=== PATIENT | male | born 1990 | race American Indian/Alaskan Native ===

== ENCOUNTER 2017-01-11 16:58 | Observation (INO) | payer OTHER ==
--- NOTE | 2017-01-11 17:13 | C.PDOC ---
History Of Present Illness <Laurita Matos - Last Filed: 01/11/17 18:44> <LaquitavalerieAna - Last Filed: 01/12/17 02:57> 26-year-old male, presents to the emergency department, brought in by EMS and [facility], with complaints of being EDP on train. Patient uncooperative en route, unfocused and scattered. Possible questionable intoxication. Pt uncooperative w / exam, and is refusing to directly answer questions. Threatening to hurt staff. All other Hx limited due to clinical condition. LIMITED DUE TO CLIN COND PER EMS AND PD, PT EDP ON TRAIN. PT UNCOOPERATIVE EN ROUTE, UNFOCUSED AND SCATTERED. POSSIBLE INTOX? PT UNCOOP W EXAM, REFUSING TO DIRECTLY ANSWER QUESTIONS. THREATENING TO HURT STAFF ROS UTO EXAM MOD DIST PSYCH AGITATED, BELIGERENT POSSIBLE INTOX VS MANIC? +ACTIVE HOMICIDAL IDEATION. REMAINDER NEG (Carlo,Laurita) History Per: Patient, EMS, Other ([employer]) History/Exam Limitations: other (uncooperative) Current Symptoms Are (Timing): Still Present <Laurita Matos - Last Filed: 01/11/17 18:44> <Ana Hernandez - Last Filed: 01/12/17 02:57> Time Seen by Provider: 01/11/17 17:11 Past Medical History Reviewed: Historical Data, Nursing Documentation, Vital Signs Family History: States: No Known Family Hx <Laurita Matos - Last Filed: 01/11/17 18:44> Review Of Systems Review Of Systems: ROS cannot be obtained secondary to pt's inabilty to answer questions. <Laurita Matos - Last Filed: 01/11/17 18:44> Physical Exam - Physical Exam Appears: Non-toxic, Other (AGITATED, BELIGERENT POSSIBLE INTOX VS MANIC? + ACTIVE HOMICIDAL IDEATION. ) Skin: Warm, Dry, No Rash Head: Atraumatic Eye(s): bilateral: Normal Inspection Oral Mucosa: Moist Lips: Normal Appearing Neck: Normal ROM Respiratory: No Accessory Muscle Use Extremity: Normal ROM Neurological/Psych: Oriented x3 <Laurita Matos - Last Filed: 01/11/17 18:44> ED Course And Treatment - Laboratory Results Result Diagrams: 01/11/17 18:30 <Laurita Matos - Last Filed: 01/11/17 18:44> - Laboratory Results Result Diagrams: 01/11/17 18:30 01/11/17 18:30 ECG: Interpreted By Me, Viewed By Me ECG Rhythm: Sinus Rhythm (74), Nonspecific Changes O2 Sat by Pulse Oximetry: 100 Pulse Ox Interpretation: Normal Reevaluation Time: 02:56 Reassessment Condition: Improved <Ana Hernandez - Last Filed: 01/12/17 02:57> Progress - Data Reviewed Data Reviewed: Lab, Diagnostic imaging, EKG, Old records - Critical Care Citical Care: Excluding Proc Time Critical Care Time: 120 minutes <Laurita Matos - Last Filed: 01/11/17 18:44> ED OBSERVATION Date of observation admission: 01/11/17 Time of observation admission: 17:15 <Laurita Matos - Last Filed: 01/11/17 18:44> Discharge: Yes <Ana Hernandez - Last Filed: 01/12/17 02:57> - Observation admission statement Patient is being placed in observation because:: AMS, AGITATION (Laurita Matos) - Goals of Observation Goals of observation are:: SOBRIETY, MED CLEAR POSSIBLE PSYCH EVAL (Laurita Matos) - Progress Note Progress Note: 01/11/17 17:14 PT UNCOOPERATIVE, INCR VIOLENT TOWARDS STAFF. UNCH W RESTRAINTS. 01/11/17 19:00 S/O DR HERNANDEZ FU LABS, DISPO (Laurita Matos) 01/11/17 23:06 vitals stable, no complaints 01/12/17 02:56 no complaints, pleasant, wants to leave (Ana Hernandez) Disposition <Laurita Matos - Last Filed: 01/11/17 18:44> Counseled Patient/Family Regarding: Studies Performed, Diagnosis, Need For Followup - Disposition Disposition Time: 19:00 <Ana Hernandez - Last Filed: 01/12/17 02:57> - Disposition Disposition: HOME/ ROUTINE Condition: FAIR - Clinical Impression Clinical Impression: Polysubstance abuse - Scribe Statement The provider has reviewed the documentation as recorded by the Scribe <Laurita Matos - Last Filed: 01/11/17 18:44> <Ana Hernandez - Last Filed: 01/12/17 02:57> - Scribe Statement Ignacio Boone All medical record entries made by the Scribe were at my direction and personally dictated by me. I have reviewed the chart and agree that the record accurately reflects my personal performance of the history, physical exam, medical decision making, and the department course for this patient. I have also personally directed, reviewed, and agree with the discharge instructions and disposition. (Laurita Matos)
[2017-01-11 18:34] LABS: BASO # 0.1 K/uL (0.0-0.2); BASO % 0.6 % (0.0-2.0); EOS # 0.1 K/uL (0.0-0.7); EOS % 1.5 % (0.0-4.0); HEMATOCRIT 44.5 % (35.0-51.0); LYMPH # 2.2 K/uL (1.0-4.3); LYMPH % 25.8 % (20.0-40.0); MEAN CELL VOLUME 92.3 fL (80.0-94.0); MEAN CORPUSCULAR HEMOGLOBIN 31.5 pg (27.0-31.0); MEAN CORPUSCULAR HGB CONC 34.1 g/dL (33.0-37.0); MONO # 0.9 K/uL (0.0-0.8); MONO % 10.8 % (0.0-10.0); RED CELL DISTRIBUTION WIDTH 12.5 % (11.5-14.5); WHITE BLOOD COUNT 8.7 K/uL (4.8-10.8)
[2017-01-11 18:44] LABS: CHLORIDE 104 mmol/L (98-107); POTASSIUM 3.5 mmol/L (3.6-5.2); SODIUM 139 mmol/L (132-148)
[2017-01-11 18:46] LABS: GFR AFRICAN-AMERICAN > 60
[2017-01-11 18:47] LABS: ALB/GLOB RATIO 1.5 (1.0-2.1); ALKALINE PHOSPHATASE 75 U/L (38-126); ALT/SGPT 23 U/L (21-72); AST/SGOT 31 U/L (17-59); BILIRUBIN,TOTAL 1.1 mg/dL (0.2-1.3); BLOOD UREA NITROGEN 12 mg/dL (9-20); CALCIUM 8.5 mg/dl (8.6-10.4); CARBON DIOXIDE 26 mmol/L (22-30); GLUCOSE,RANDOM 75 mg/dL (75-110); TOTAL PROTEIN 6.6 g/dL (6.3-8.3)
--- NOTE | 2017-01-11 19:55 | CT ---
EXAM: CT Head Without Intravenous Contrast CLINICAL HISTORY: 26 years old, male; Signs and symptoms; Altered mental status/memory loss; Confusion or disorientation; Patient HX: Combative; Additional info: AMS TECHNIQUE: Axial computed tomography images of the head/brain without intravenous contrast. This CT exam was performed using one or more of the following dose reduction techniques: automated exposure control, adjustment of the mA and/or kV according to patient size, and/or use of iterative reconstruction technique. EXAM DATE/TIME: 01/11/2017 5:15 PM COMPARISON: There are no prior studies for comparison. FINDINGS: Brain: Ventricles are normal in size and configuration. There is no midline shift. There are no intra-axial or extra-axial mass lesions or areas of hemorrhage. There are no abnormal fluid collections. Griffith-white differentiation is maintained. Ventricles: See above. Bones: Cranial vault is intact. Soft tissues: unremarkable Sinuses: There is no acute sinusitis. There is a retention cyst/polyp in the sphenoid sinus Ears and mastoids: Middle ears and mastoids are unremarkable. There is debris in the left external auditory canal. Orbits: Orbital contents are unremarkable. IMPRESSION: No acute intracranial abnormality
[2017-01-11 19:59] LABS: URINE BILIRUBIN NEGATIVE (NEGATIVE); URINE BLOOD NEGATIVE (NEGATIVE); URINE COLOR Yellow (YELLOW); URINE GLUCOSE (UA) NORMAL (Normal); URINE KETONE TRACE mg/dL (NEGATIVE); URINE LEUKOCYTE ESTERASE NEG Leu/uL (Negative); URINE PROTEIN NEGATIVE (NEGATIVE); WBC URINE < 1 /hpf (0-5)
[2017-01-11 20:06] VITALS: TEMP 97.6
[2017-01-12 01:09] VITALS: BP 108/64; PULSE 72; RESP 18
[2017-01-12 02:57] VITALS: O2SAT 100
--- NOTE | 2017-01-12 08:04 | RAD ---
PROCEDURE: CHEST RADIOGRAPH, 1 VIEW HISTORY: Altered mental status COMPARISON: None available. FINDINGS: LUNGS: Clear. PLEURA: No pneumothorax or pleural fluid seen. CARDIOVASCULAR: Normal. OSSEOUS STRUCTURES: No significant abnormalities. VISUALIZED UPPER ABDOMEN: Normal. OTHER FINDINGS: None. IMPRESSION: No active disease.
--- NOTE | 2017-01-13 01:55 | CARD ---
APPROVED REPORT EKG Measurement Heart [id number] <Conclusion> Normal sinus rhythm with sinus arrhythmia Normal ECG
== END 2017-01-12 02:57 | disposition home or self-care (01) ==
LOC: C.ER 16:58 → C.9OBSV 17:14
PROVIDERS: ADMIT Emergency Medicine; ATTEND Emergency Medicine
DX: F16.10 Hallucinogen abuse, uncomplicated (principal); F12.10 Cannabis abuse, uncomplicated
CPT/HCPCS: 36415; 70450; 71010; 80053; 80324; 80345; 80346; 80349; 80353; 80358; 80361; 81001; 83992; 85025; 96372; G0378; J2060; J3486

== ENCOUNTER 2017-03-21 14:24 | Emergency (ER) | payer OTHER ==
[2017-03-21 14:46] VITALS: BMI 24.3
[2017-03-21 14:58] VITALS: BP 113/70
[2017-03-21 15:28] VITALS: PULSE 78; RESP 16; TEMP 98.2; O2SAT 99
--- NOTE | 2017-03-21 17:36 | C.PDOC ---
History Of Present Illness 26 yr old male brought in via PD and EMS, according to the triage note, patient is brought in to ER for acting "bizarre". In ED, patient denies SI, HI, visual or auditory hallucinations, nausea or vomiting. Time Seen by Provider: 03/21/17 15:10 Chief Complaint (Nursing): Psychiatric Evaluation History Per: Patient, EMS History/Exam Limitations: no limitations Onset/Duration Of Symptoms: Unknown Current Symptoms Are (Timing): Gone Suicide/Self Injury Attempted (Context): None Severity: None Past Medical History Reviewed: Historical Data, Nursing Documentation, Vital Signs Vital Signs: Last Vital Signs Temp 98.2 F 03/21/17 15:27 Pulse 78 03/21/17 15:27 Resp 16 03/21/17 15:27 BP 113/70 03/21/17 15:27 Pulse Ox 99 03/21/17 17:37 Family History: States: No Known Family Hx - Social History Hx Alcohol Use: Yes Hx Substance Use: Yes Review Of Systems Except As Marked, All Systems Reviewed And Found Negative. Gastrointestinal: Negative for: Nausea, Vomiting Psych: Negative for: Suicidal ideation Physical Exam - Physical Exam Appears: Non-toxic, No Acute Distress Skin: Warm, Dry, No Rash Head: Atraumatic, Normacephalic Oral Mucosa: Moist Chest: Symmetrical, No Tenderness Cardiovascular: Rhythm Regular, No Murmur Respiratory: Normal Breath Sounds, No Rales, No Rhonchi, No Wheezing Extremity: Normal ROM, No Swelling Neurological/Psych: Oriented x3, Normal Speech, Normal Motor ED Course And Treatment O2 Sat by Pulse Oximetry: 99 (RA ) Pulse Ox Interpretation: Normal Progress Note: Patient was seen and evaluated by the Crisis team and was cleared for discharge. Disposition - Disposition Referrals: [facility] Dirk Chacko, [Non-Staff] - Disposition: HOME/ ROUTINE Disposition Time: 15:15 Condition: GOOD Additional Instructions: Thank you for letting us take care of you today. Your provider was Dr. Laura. You were treated for impacted cerumen. The emergency medical care you received today was directed at your acute symptoms. If you were prescribed any medication, please fill it and take as directed. It may take several days for your symptoms to resolve. Return to the Emergency Department if your symptoms worsen, do not improve, or if you have any other problems. Please contact your doctor or call one of the physicians/clinics you have been referred to that are listed on the Patient Visit Information form that is included in your discharge packet. Bring any paperwork you were given at discharge with you along with any medications you are taking to your follow up visit. Our treatment cannot replace ongoing medical care by a primary care provider (PCP) outside of the emergency department. Thank you for allowing the [facility] team to be part of your care today. Follow up with your primary doctor in 2-3 days for re-evaluation and further management. Prescriptions: Carbamide Peroxide [Debrox 15 Ml] 1 drop OT Q6 #1 bottle Instructions: Cannabis Abuse (ED) Forms: [employer] ([place]) - Clinical Impression Clinical Impression: Drug abuse - Scribe Statement The provider has reviewed the documentation as recorded by the Fawadibnelida Cruz Provider Attestation: All medical record entries made by the Scribe were at my direction and personally dictated by me. I have reviewed the chart and agree that the record accurately reflects my personal performance of the history, physical exam, medical decision making, and the department course for this patient. I have also personally directed, reviewed, and agree with the discharge instructions and disposition.
== END 2017-03-21 15:28 | disposition home or self-care (01) ==
LOC: C.ER 14:24
DX: F12.10 Cannabis abuse, uncomplicated (principal)